=== PATIENT | male | born 1970 | race African-American/Black ===

== ENCOUNTER 2021-09-09 04:35 | Inpatient (IN) | payer MEDICAID ==
[~2021-09-09] VITALS: Ht 160 cm; Wt 68.0 kg
[2021-09-09 05:41] LABS: COVID AG,FIA SOURCE NASAL SWAB
[2021-09-09 05:42] LABS: BASOPHILS % (AUTO) 0.6 % (0.0-2.0); EOSINOPHILS % (AUTO) 1.3 % (1.0-6.0); HEMATOCRIT 41.5 % (41-53); HEMOGLOBIN 13.6 g/dL (13.5-17.5); LYMPHOCYTES # (AUTO) 1.9 K/uL (1.0-4.8); LYMPHOCYTES % (AUTO) 18.8 % (22.0-44.0); MEAN CORPUSCULAR HEMOGLOBIN 31.3 pg (26.0-34.0); MEAN CORPUSCULAR HGB CONC 32.9 G/dL (31.0-37.0); MEAN CORPUSCULAR VOLUME 95 fL (80-100); MONOCYTES # (AUTO) 0.7 K/uL (0.1-1.0); MONOCYTES % (AUTO) 7.5 % (2.0-9.0); NEUTROPHILS # (AUTO) 7.1 K/uL (1.8-7.7); NEUTROPHILS % (AUTO) 71.8 % (40.0-70.0); PLATELET COUNT (AUTO) 315 K/uL (150-450); RED BLOOD CELL COUNT(AUTO) 4.36 MIL/uL (4.50-5.90); RED CELL DISTRIBUTION WIDTH 15.1 % (11.5-14.5)
[2021-09-09 05:53] LABS: ANION GAP 17 mmol/L (8-16); CARBON DIOXIDE 26 mmol/L (22-29); CHLORIDE 102 mmol/L (98-107); GLOMERULAR FILTR. RATE CALC > 60 mL/min (>60); GLUCOSE,RANDOM 115 mg/dL (70-110); POTASSIUM 5.2 mmol/L (3.5-5.1); SODIUM SERUM 145 mmol/L (136-145); UREA NITROGEN, BLOOD 17 mg/dL (7-18)
[2021-09-09 05:58] LABS: ALANINE AMINOTRANSFERASE 37 U/L (12-78); ALBUMIN 3.2 g/dL (3.4-5.0); ALKALINE PHOSPHATASE 149 U/L (46-116); ASPARTATE AMINOTRANSFERASE 20 U/L (15-37); BILIRUBIN,TOTAL 0.5 mg/dL (0.1-1.0); TOTAL PROTEIN, SERUM 6.8 g/dL (6.4-8.2)
[2021-09-09 06:09] LABS: B-TYPE NATRIURETIC PEPTIDE 989 pg/mL (0-100)
[2021-09-09] MEDS ORDERED: ALBUTEROL SULFATE 2.5 MG/0.5 ML NEB SOLUTION NEB ONE (06:15)
[2021-09-09] MEDS ORDERED: IPRATROPIUM BROMIDE 0.5 MG/2.5 ML NEB SOLUTION NEB ONE (06:15)
[2021-09-09] MEDS ORDERED: MethylPREDNISolone SOD SUCC 125 MG/2 ML VIAL IVP ONE (06:15)
[2021-09-09 06:40] LABS: CREATINE KINASE, TOTAL ONLY 69 U/L (39-308)
[2021-09-09] MEDS ORDERED: FUROSEMIDE 40 MG/4 ML VIAL IVP ONE (07:30)
[2021-09-09] MEDS ORDERED: FUROSEMIDE 20 MG/2 ML VIAL IVP ONE (07:30)
[2021-09-09] MEDS ORDERED: AZITHROMYCIN 500 MG/NS 250 ML IV ONE (08:15)
[2021-09-09] MEDS ORDERED: CefTRIAXone 1 GM/DEXTROSE 50 ML IV ONE (08:15)
[2021-09-09 09:40] LABS: APPEARANCE,URINE CLEAR (CLEAR); BILIRUBIN,URINE NEGATIVE (NEGATIVE); GLUCOSE, URINE (UA) NEGATIVE (NEGATIVE); KETONES,URINE NEGATIVE (NEGATIVE); LEUKOCYTE ESTERASE ,URINE NEGATIVE (NEGATIVE); NITRATE,URINE NEGATIVE (NEGATIVE); OCCULT BLOOD,URINE NEGATIVE (NEGATIVE); SPECIFIC GRAVITIY, URINE 1.006 (1.003-1.030); UROBILINOGEN,URINE <=1.0 mg/dL (<=1.0)
[2021-09-09 09:41] LABS: PROTEIN,URINE NEGATIVE (NEGATIVE)
[2021-09-09] MEDS ORDERED: AmLODIPine BESYLATE 5 MG TABLET PO ONE ×2 (10:00→12:45)
[2021-09-09] MEDS ORDERED: HYDROmorphone 2 MG/ML VIAL IVP ONE (10:15)
[2021-09-09 10:19] LABS: BASOPHILS % (AUTO) 0.2 % (0.0-2.0); EOSINOPHILS % (AUTO) 0.1 % (1.0-6.0); HEMATOCRIT 42.4 % (41-53); LYMPHOCYTES # (AUTO) 0.5 K/uL (1.0-4.8); LYMPHOCYTES % (AUTO) 6.2 % (22.0-44.0); MEAN CORPUSCULAR HEMOGLOBIN 31.4 pg (26.0-34.0); MEAN CORPUSCULAR VOLUME 95 fL (80-100); MONOCYTES # (AUTO) 0.2 K/uL (0.1-1.0); MONOCYTES % (AUTO) 2.1 % (2.0-9.0); NEUTROPHILS # (AUTO) 7.7 K/uL (1.8-7.7); NEUTROPHILS % (AUTO) 91.4 % (40.0-70.0); PLATELET COUNT (AUTO) 317 K/uL (150-450); RED BLOOD CELL COUNT(AUTO) 4.46 MIL/uL (4.50-5.90); RED CELL DISTRIBUTION WIDTH 14.7 % (11.5-14.5)
[2021-09-09] MEDS ORDERED: ZOLPIDEM TARTRATE 5 MG TABLET PO PRN (10:30)
[2021-09-09] MEDS ORDERED: ALBUTEROL SULFATE 2.5 MG/0.5 ML NEB SOLUTION NEB PRN (10:30)
[2021-09-09] MEDS ORDERED: ONDANSETRON HCL 4 MG/2 ML VIAL IVP PRN (10:30)
[2021-09-09] MEDS ORDERED: BISACODYL 10 MG RECTAL RECTAL SUPPOSITORY PR PRN (10:30)
[2021-09-09] MEDS ORDERED: MAGNESIUM HYDROXIDE SUSPENSION 30 ML UDCUP PO PRN (10:30)
[2021-09-09] MEDS ORDERED: IPRATROPIUM BROMIDE 0.5 MG/2.5 ML NEB SOLUTION NEB PRN (10:30)
[2021-09-09] MEDS ORDERED: HYDROCODONE/ACETAMINOPHEN 5-325 MG TABLET PO PRN (10:30)
[2021-09-09] MEDS ORDERED: MORPHINE SULFATE 2 MG/ML SYRINGE IVP PRN (10:30)
[2021-09-09] MEDS ORDERED: ACETAMINOPHEN 325 MG TABLET PO PRN (10:30)
[2021-09-09 10:39] LABS: ANION GAP 15 mmol/L (8-16); CALCIUM, TOTAL 8.7 mg/dL (8.8-10.5); CARBON DIOXIDE 19 mmol/L (22-29); CHLORIDE 102 mmol/L (98-107); CREATININE 1.29 mg/dL (0.60-1.30); GLUCOSE,RANDOM 177 mg/dL (70-110); POTASSIUM 4.5 mmol/L (3.5-5.1); SODIUM SERUM 136 mmol/L (136-145); UREA NITROGEN, BLOOD 18 mg/dL (7-18)
[2021-09-09] MEDS: FUROSEMIDE 20 MG/2 ML VIAL IVP SCH (10:40)
[2021-09-09 10:41] LABS: GLOMERULAR FILTR. RATE CALC > 60 mL/min (>60)
[2021-09-09] MEDS: LEVOFLOXACIN 750 MG/D5% WATER 150 ML IV SCH (10:41)
[2021-09-09 10:46] LABS: ALANINE AMINOTRANSFERASE 33 U/L (12-78); ALBUMIN 3.1 g/dL (3.4-5.0); ALKALINE PHOSPHATASE 144 U/L (46-116); ASPARTATE AMINOTRANSFERASE 19 U/L (15-37); BILIRUBIN,TOTAL 0.7 mg/dL (0.1-1.0); LIPASE 118 U/L (73-393); TOTAL PROTEIN, SERUM 6.6 g/dL (6.4-8.2)
[2021-09-09 10:49] LABS: AMPHET/METH SCREEN,URINE POSITIVE (NEGATIVE); BARBITURATE SCREEN, URINE NEGATIVE (NEGATIVE); BENZODIAZEPINES SCREEN,URINE NEGATIVE (NEGATIVE); CANNABINOID SCREEN,URINE NEGATIVE (NEGATIVE); COCAINE SCREEN,URINE NEGATIVE (NEGATIVE); METHADONE SCREEN, URINE NEGATIVE (NEGATIVE); OPIATE SCREEN,URINE NEGATIVE (NEGATIVE)
[2021-09-09 10:51] LABS: PHENCYCLIDINE SCREEN,URINE NEGATIVE (NEGATIVE)
[2021-09-09 11:12] LABS: PHOSPHORUS 3.5 mg/dL (2.5-4.9)
[2021-09-09 13:24] VITALS: BP 130/95
[2021-09-09 16:07] VITALS: BP 126/96
[2021-09-09] MEDS: HEPARIN SODIUM,PORCINE 5,000 UNITS/ML VIAL SQ SCH ×2 (16:41→23:37)
[2021-09-09 20:00] VITALS: BP 127/98
[2021-09-09] MEDS: DOCUSATE SODIUM 100 MG CAPSULE PO SCH (20:46)
[2021-09-10 04:54] VITALS: BP 137/100
[2021-09-10] MEDS ORDERED: PNEUMOCOCCAL VACCINE POLYVALENT 0.5 ML VIAL [PPSV23] IM. ONE (06:00)
[2021-09-10 06:10] LABS: BASOPHILS % (AUTO) 0.1 % (0.0-2.0); EOSINOPHILS % (AUTO) 0 % (1.0-6.0); HEMATOCRIT 39.8 % (41-53); HEMOGLOBIN 12.8 g/dL (13.5-17.5); LYMPHOCYTES # (AUTO) 0.7 K/uL (1.0-4.8); LYMPHOCYTES % (AUTO) 5.7 % (22.0-44.0); MEAN CORPUSCULAR HEMOGLOBIN 30.9 pg (26.0-34.0); MEAN CORPUSCULAR HGB CONC 32.2 G/dL (31.0-37.0); MEAN CORPUSCULAR VOLUME 96 fL (80-100); MONOCYTES # (AUTO) 0.8 K/uL (0.1-1.0); NEUTROPHILS # (AUTO) 10.4 K/uL (1.8-7.7); PLATELET COUNT (AUTO) 316 K/uL (150-450); RED BLOOD CELL COUNT(AUTO) 4.15 MIL/uL (4.50-5.90)
[2021-09-10 06:13] LABS: ANION GAP 11 mmol/L (8-16); CALCIUM, TOTAL 8.8 mg/dL (8.8-10.5); CARBON DIOXIDE 24 mmol/L (22-29); CHLORIDE 100 mmol/L (98-107); CREATININE 1.27 mg/dL (0.60-1.30); GLUCOSE,RANDOM 143 mg/dL (70-110); POTASSIUM 4.6 mmol/L (3.5-5.1); SODIUM SERUM 135 mmol/L (136-145); UREA NITROGEN, BLOOD 29 mg/dL (7-18)
[2021-09-10 06:14] LABS: NEUTROPHILS % (AUTO) 87.2 % (40.0-70.0)
[2021-09-10 06:17] LABS: GLOMERULAR FILTR. RATE CALC > 60 mL/min (>60)
[2021-09-10 07:30] VITALS: BP 125/96
[2021-09-10] MEDS: DOCUSATE SODIUM 100 MG CAPSULE PO SCH ×2 (08:36→20:14)
[2021-09-10] MEDS: HEPARIN SODIUM,PORCINE 5,000 UNITS/ML VIAL SQ SCH ×3 (08:36→23:29)
[2021-09-10] MEDS: PANTOPRAZOLE SODIUM 40 MG DR TABLET PO SCH (08:36)
[2021-09-10] MEDS: FUROSEMIDE 20 MG/2 ML VIAL IVP SCH (08:36)
[2021-09-10] MEDS ORDERED: SODIUM CHLORIDE 0.9% 500 ML IV ONE (11:11)
[2021-09-10] MEDS: LEVOFLOXACIN 750 MG/D5% WATER 150 ML IV SCH (11:25)
[2021-09-10 16:00] VITALS: BP 129/89
[2021-09-10 21:01] VITALS: BP 135/95
[2021-09-11 06:02] LABS: BASOPHILS % (AUTO) 0.3 % (0.0-2.0); EOSINOPHILS % (AUTO) 0.4 % (1.0-6.0); HEMATOCRIT 39.5 % (41-53); HEMOGLOBIN 12.6 g/dL (13.5-17.5); LYMPHOCYTES # (AUTO) 1.9 K/uL (1.0-4.8); LYMPHOCYTES % (AUTO) 15.6 % (22.0-44.0); MEAN CORPUSCULAR HEMOGLOBIN 30.6 pg (26.0-34.0); MEAN CORPUSCULAR HGB CONC 31.8 G/dL (31.0-37.0); MEAN CORPUSCULAR VOLUME 96 fL (80-100); MONOCYTES # (AUTO) 0.8 K/uL (0.1-1.0); NEUTROPHILS # (AUTO) 9.2 K/uL (1.8-7.7); NEUTROPHILS % (AUTO) 76.7 % (40.0-70.0); PLATELET COUNT (AUTO) 317 K/uL (150-450)
[2021-09-11 06:07] VITALS: BP 131/100
[2021-09-11 06:28] LABS: ANION GAP 11 mmol/L (8-16); CALCIUM, TOTAL 8.7 mg/dL (8.8-10.5); CARBON DIOXIDE 27 mmol/L (22-29); CHLORIDE 104 mmol/L (98-107); CREATININE 1.37 mg/dL (0.60-1.30); GLUCOSE,RANDOM 104 mg/dL (70-110); POTASSIUM 4.2 mmol/L (3.5-5.1); SODIUM SERUM 142 mmol/L (136-145); UREA NITROGEN, BLOOD 35 mg/dL (7-18)
[2021-09-11 06:30] LABS: GLOMERULAR FILTR. RATE CALC > 60 mL/min (>60)
[2021-09-11 07:51] VITALS: BP 124/85
[2021-09-11] MEDS: HEPARIN SODIUM,PORCINE 5,000 UNITS/ML VIAL SQ SCH ×3 (08:30→23:41)
[2021-09-11] MEDS: FUROSEMIDE 20 MG/2 ML VIAL IVP SCH (08:30)
[2021-09-11] MEDS: DOCUSATE SODIUM 100 MG CAPSULE PO SCH ×2 (08:30→21:00)
[2021-09-11] MEDS: PANTOPRAZOLE SODIUM 40 MG DR TABLET PO SCH (08:30)
[2021-09-11] MEDS: LEVOFLOXACIN 750 MG/D5% WATER 150 ML IV SCH (11:07)
[2021-09-11 15:57] VITALS: BP 137/82
[2021-09-11 20:00] VITALS: BP 146/102
[2021-09-11 23:41] VITALS: BP 140/95
[2021-09-12 04:59] VITALS: BP 131/93
[2021-09-12 06:24] LABS: BASOPHILS % (AUTO) 0.4 % (0.0-2.0); EOSINOPHILS % (AUTO) 1.5 % (1.0-6.0); HEMATOCRIT 42.7 % (41-53); HEMOGLOBIN 13.8 g/dL (13.5-17.5); LYMPHOCYTES # (AUTO) 1.7 K/uL (1.0-4.8); LYMPHOCYTES % (AUTO) 17.1 % (22.0-44.0); MEAN CORPUSCULAR HEMOGLOBIN 31.1 pg (26.0-34.0); MEAN CORPUSCULAR HGB CONC 32.3 G/dL (31.0-37.0); MEAN CORPUSCULAR VOLUME 96 fL (80-100); MONOCYTES # (AUTO) 0.9 K/uL (0.1-1.0); MONOCYTES % (AUTO) 9.5 % (2.0-9.0); NEUTROPHILS % (AUTO) 71.5 % (40.0-70.0); PLATELET COUNT (AUTO) 339 K/uL (150-450); RED BLOOD CELL COUNT(AUTO) 4.43 MIL/uL (4.50-5.90); RED CELL DISTRIBUTION WIDTH 14.5 % (11.5-14.5)
[2021-09-12 06:39] LABS: ANION GAP 6 mmol/L (8-16); CALCIUM, TOTAL 9.2 mg/dL (8.8-10.5); CARBON DIOXIDE 29 mmol/L (22-29); CHLORIDE 102 mmol/L (98-107); CREATININE 1.47 mg/dL (0.60-1.30); GLUCOSE,RANDOM 91 mg/dL (70-110); POTASSIUM 4.1 mmol/L (3.5-5.1); SODIUM SERUM 137 mmol/L (136-145); UREA NITROGEN, BLOOD 31 mg/dL (7-18)
[2021-09-12 07:19] LABS: GLOMERULAR FILTR. RATE CALC > 60 mL/min (>60)
[2021-09-12] MEDS: PANTOPRAZOLE SODIUM 40 MG DR TABLET PO SCH (08:07)
[2021-09-12] MEDS: FUROSEMIDE 20 MG/2 ML VIAL IVP SCH (08:07)
[2021-09-12] MEDS: HEPARIN SODIUM,PORCINE 5,000 UNITS/ML VIAL SQ SCH (08:07)
[2021-09-12] MEDS: DOCUSATE SODIUM 100 MG CAPSULE PO SCH (08:07)
[2021-09-12 08:34] VITALS: BP_SYST 116; BP_SYST 131; BP_DIAS 75; BP_DIAS 93
[2021-09-12] MEDS: LEVOFLOXACIN 750 MG/D5% WATER 150 ML IV SCH (09:53)
[2021-09-12] MEDS ORDERED: LEVO250T75 PO (11:21)
[2021-09-12] MEDS ORDERED: FURO20 PO (15:25)
== END 2021-09-12 14:46 | disposition home or self-care (01) | DRG 194 ==
LOC: EMS 04:39 → 6N 12:16
PROVIDERS: ADMIT Internal Medicine; ATTEND Internal Medicine
DX: I50.23 Acute on chronic systolic (congestive) heart failure (principal); J18.9 Pneumonia, unspecified organism; I49.3 Ventricular premature depolarization; Z20.822 Contact with and (suspected) exposure to COVID-19; R73.9 Hyperglycemia, unspecified; Z79.899 Other long term (current) drug therapy; Z87.891 Personal history of nicotine dependence
CPT/HCPCS: 71045; 74176; 80048; 80053; 81003; 82550; 83605; 83690; 83735; 83880; 84100; 84484; 85025; 85379; 87040; 93005; 94640; 99285; J0456; J1170; J1644; J1940; J1956; J2930; J7040; 36415-L1; 36415-TC; J7613; U0003

== ENCOUNTER 2022-01-03 18:01 | Inpatient (IN) | payer MEDICAID ==
[~2022-01-03] VITALS: Ht 158.8 cm; Wt 62.5 kg
[~2022-01-03 18:01] MED LIST: AMOX1TAB16 PO; FURO20 PO; LOSA-381 PO; METO25 PO; SPIR-37 PO
[2022-01-03] MEDS ORDERED: FURO20TA4 PO (18:28)
[2022-01-03] MEDS ORDERED: ALBUTEROL SULFATE 2.5 MG/0.5 ML NEB SOLUTION NEB ONE (18:30)
[2022-01-03] MEDS ORDERED: IPRATROPIUM BROMIDE 0.5 MG/2.5 ML NEB SOLUTION NEB ONE (18:30)
[2022-01-03] MEDS ORDERED: ASPIRIN 325 MG TABLET PO ONE (18:30)
[2022-01-03] MEDS ORDERED: FUROSEMIDE 40 MG/4 ML VIAL IVP ONE (18:30)
[2022-01-03] MEDS ORDERED: NITROGLYCERIN 2% (1 GM=INCH) PACKET TP ONE (18:30)
[2022-01-03] MEDS ORDERED: MethylPREDNISolone SOD SUCC 125 MG/2 ML VIAL IVP ONE (18:30)
[2022-01-03] MEDS ORDERED: CefTRIAXone 1 GM/DEXTROSE 50 ML IV ONE (19:15)
[2022-01-03 19:26] LABS: BASOPHILS % (AUTO) 0.8 % (0.0-2.0); EOSINOPHILS % (AUTO) 0.9 % (1.0-6.0); HEMATOCRIT 46.7 % (41-53); HEMOGLOBIN 14.9 g/dL (13.5-17.5); LYMPHOCYTES # (AUTO) 2.5 K/uL (1.0-4.8); LYMPHOCYTES % (AUTO) 29.8 % (22.0-44.0); MEAN CORPUSCULAR HEMOGLOBIN 29.7 pg (26.0-34.0); MEAN CORPUSCULAR HGB CONC 31.9 G/dL (31.0-37.0); MEAN CORPUSCULAR VOLUME 93 fL (80-100); MONOCYTES # (AUTO) 0.6 K/uL (0.1-1.0); MONOCYTES % (AUTO) 7.4 % (2.0-9.0); NEUTROPHILS # (AUTO) 5.2 K/uL (1.8-7.7); NEUTROPHILS % (AUTO) 61.1 % (40.0-70.0); PLATELET COUNT (AUTO) 324 K/uL (150-450); RED BLOOD CELL COUNT(AUTO) 5.02 MIL/uL (4.50-5.90); RED CELL DISTRIBUTION WIDTH 16.3 % (11.5-14.5)
[2022-01-03 19:36] LABS: ANION GAP 9 mmol/L (8-16); CALCIUM, TOTAL 9.1 mg/dL (8.8-10.5); CARBON DIOXIDE 23 mmol/L (22-29); CHLORIDE 101 mmol/L (98-107); CREATININE 1.98 mg/dL (0.60-1.30); GLOMERULAR FILTR. RATE CALC 44 mL/min (>60); GLUCOSE,RANDOM 121 mg/dL (70-110); POTASSIUM 4.4 mmol/L (3.5-5.1); SODIUM SERUM 133 mmol/L (136-145); UREA NITROGEN, BLOOD 33 mg/dL (7-18)
[2022-01-03 19:42] LABS: ALANINE AMINOTRANSFERASE 26 U/L (12-78); ALBUMIN 3.5 g/dL (3.4-5.0); ALKALINE PHOSPHATASE 172 U/L (46-116); ASPARTATE AMINOTRANSFERASE 26 U/L (15-37); BILIRUBIN,TOTAL 1.3 mg/dL (0.1-1.0); LIPASE 183 U/L (73-393); TOTAL PROTEIN, SERUM 7.5 g/dL (6.4-8.2)
[2022-01-03 19:47] LABS: LACTIC ACID 2.7 mmol/L (0.4-2.0)
[2022-01-03 19:48] LABS: B-TYPE NATRIURETIC PEPTIDE 1980 pg/mL (0-100)
[2022-01-03 19:50] LABS: COVID AG,FIA SOURCE NASOPHARYNGEAL
[2022-01-03] MEDS: OXYGEN THERAPY IH SCH ×2 (19:58→20:00)
[2022-01-03 20:06] LABS: INFLUENZA TYPE A NEGATIVE FOR TYPE A (NEGATIVE); INFLUENZA TYPE B NEGATIVE FOR TYPE B (NEGATIVE)
[2022-01-03] MEDS ORDERED: 0.9% SODIUM CHLORIDE 10 ML SYRINGE IVP PRN (21:30)
[2022-01-03] MEDS ORDERED: ACETAMINOPHEN 325 MG TABLET PO PRN ×2 (21:30→23:45)
[2022-01-03] MEDS ORDERED: ONDANSETRON HCL 4 MG/2 ML VIAL IVP PRN ×2 (21:30→23:45)
[2022-01-03] MEDS ORDERED: BUMETANIDE 0.25 MG/ML 4 ML VIAL IVP ONE (21:30)
[2022-01-03] MEDS ORDERED: METOPROLOL TARTRATE 25 MG TABLET PO ONE (22:00)
[2022-01-03] MEDS ORDERED: LABETALOL HCL 5 MG/ML 20 ML VIAL IVP ONE (22:00)
[2022-01-03] MEDS ORDERED: MAGNESIUM HYDROXIDE SUSPENSION 30 ML UDCUP PO PRN (23:45)
[2022-01-03] MEDS ORDERED: BISACODYL 10 MG RECTAL RECTAL SUPPOSITORY PR PRN (23:45)
[2022-01-03] MEDS ORDERED: ZOLPIDEM TARTRATE 5 MG TABLET PO PRN (23:45)
[2022-01-03] MEDS ORDERED: IPRATROPIUM BROMIDE 0.5 MG/2.5 ML NEB SOLUTION NEB PRN (23:45)
[2022-01-03] MEDS ORDERED: OxyCODONE HCL/ACETAMINOPHEN 5-325 MG TABLET PO PRN (23:45)
[2022-01-03] MEDS ORDERED: MORPHINE SULFATE 2 MG/ML SYRINGE IVP PRN (23:45)
[2022-01-03] MEDS ORDERED: ALBUTEROL SULFATE 2.5 MG/0.5 ML NEB SOLUTION NEB PRN (23:45)
[2022-01-04] MEDS: HEPARIN SODIUM,PORCINE 5,000 UNITS/ML VIAL SQ SCH ×4 (00:10→23:35)
[2022-01-04] MEDS: MethylPREDNISolone SOD SUCC 125 MG/2 ML VIAL IVP SCH ×5 (00:10→23:35)
[2022-01-04] MEDS: IPRATROPIUM BROMIDE 0.5 MG/2.5 ML NEB SOLUTION NEB SCH ×6 (03:11→23:00)
[2022-01-04] MEDS: ALBUTEROL SULFATE 2.5 MG/0.5 ML NEB SOLUTION NEB SCH ×6 (03:11→23:00)
[2022-01-04] MEDS: PANTOPRAZOLE SODIUM 40 MG DR TABLET PO SCH (08:13)
[2022-01-04] MEDS: DOCUSATE SODIUM 100 MG CAPSULE PO SCH ×2 (08:13→20:05)
[2022-01-04] MEDS: FUROSEMIDE 20 MG/2 ML VIAL IVP SCH ×2 (08:13→20:06)
[2022-01-04] MEDS: LOSARTAN POTASSIUM 25 MG TABLET PO SCH (08:14)
[2022-01-04] MEDS: METOPROLOL TARTRATE 25 MG TABLET PO SCH ×2 (08:14→20:06)
[2022-01-04 16:03] VITALS: BP 122/89
[2022-01-04 16:05] VITALS: BP 122/89
[2022-01-04] MEDS ORDERED: PNEUMOCOCCAL VACCINE POLYVALENT 0.5 ML VIAL [PPSV23] IM. ONE (19:15)
[2022-01-04 19:31] VITALS: BP 121/87
[2022-01-04 23:58] VITALS: BP 102/63
[2022-01-05] MEDS: ALBUTEROL SULFATE 2.5 MG/0.5 ML NEB SOLUTION NEB SCH ×6 (03:00→22:36)
[2022-01-05] MEDS: IPRATROPIUM BROMIDE 0.5 MG/2.5 ML NEB SOLUTION NEB SCH ×6 (03:00→22:36)
[2022-01-05 04:16] VITALS: BP 109/78
[2022-01-05] MEDS: MethylPREDNISolone SOD SUCC 125 MG/2 ML VIAL IVP SCH ×3 (06:13→18:22)
[2022-01-05 07:18] VITALS: BP 118/78
[2022-01-05] MEDS: FUROSEMIDE 20 MG/2 ML VIAL IVP SCH ×2 (07:43→20:36)
[2022-01-05] MEDS: METOPROLOL TARTRATE 25 MG TABLET PO SCH ×2 (07:43→20:36)
[2022-01-05] MEDS: DOCUSATE SODIUM 100 MG CAPSULE PO SCH ×2 (07:43→20:36)
[2022-01-05] MEDS: HEPARIN SODIUM,PORCINE 5,000 UNITS/ML VIAL SQ SCH ×3 (07:44→23:50)
[2022-01-05] MEDS: LOSARTAN POTASSIUM 25 MG TABLET PO SCH (07:44)
[2022-01-05] MEDS: PANTOPRAZOLE SODIUM 40 MG DR TABLET PO SCH (07:45)
[2022-01-05 11:09] VITALS: BP 103/67
[2022-01-05 15:24] VITALS: BP 114/67
[2022-01-05 17:22] LABS: APPEARANCE,URINE CLEAR (CLEAR); BILIRUBIN,URINE NEGATIVE (NEGATIVE); GLUCOSE, URINE (UA) NEGATIVE (NEGATIVE); KETONES,URINE NEGATIVE (NEGATIVE); LEUKOCYTE ESTERASE ,URINE NEGATIVE (NEGATIVE); NITRATE,URINE NEGATIVE (NEGATIVE); OCCULT BLOOD,URINE NEGATIVE (NEGATIVE); PROTEIN,URINE NEGATIVE (NEGATIVE); SPECIFIC GRAVITIY, URINE 1.012 (1.003-1.030); UROBILINOGEN,URINE <=1.0 mg/dL (<=1.0)
[2022-01-05 17:35] LABS: AMPHET/METH SCREEN,URINE NEGATIVE (NEGATIVE); BARBITURATE SCREEN, URINE NEGATIVE (NEGATIVE); BENZODIAZEPINES SCREEN,URINE NEGATIVE (NEGATIVE); CANNABINOID SCREEN,URINE POSITIVE (NEGATIVE); COCAINE SCREEN,URINE NEGATIVE (NEGATIVE); METHADONE SCREEN, URINE NEGATIVE (NEGATIVE); OPIATE SCREEN,URINE NEGATIVE (NEGATIVE)
[2022-01-05 17:39] LABS: PHENCYCLIDINE SCREEN,URINE NEGATIVE (NEGATIVE)
[2022-01-05 17:54] LABS: BACTERIA,URINE None Seen /HPF (None Seen); FINE GRANULAR CASTS,URINE 0-2 /LPF (None Seen); RBC,URINE 0-2 /HPF (0-2); SQUAMOUS EPITHELIAL CELL,UR Few /LPF (None Seen); WBC,URINE 0-2 /HPF (0-5)
[2022-01-05 19:55] VITALS: BP 115/74
[2022-01-05] MEDS ORDERED: PredniSONE 20 MG TABLET PO ONE (22:45)
[2022-01-06 00:40] VITALS: BP 111/63
[2022-01-06] MEDS: ALBUTEROL SULFATE 2.5 MG/0.5 ML NEB SOLUTION NEB SCH ×4 (03:00→15:05)
[2022-01-06] MEDS: IPRATROPIUM BROMIDE 0.5 MG/2.5 ML NEB SOLUTION NEB SCH ×4 (03:00→15:05)
[2022-01-06 07:29] VITALS: BP 124/86
[2022-01-06] MEDS: METOPROLOL TARTRATE 25 MG TABLET PO SCH (09:00)
[2022-01-06] MEDS ORDERED: PredniSONE 20 MG TABLET PO SCH (09:00)
[2022-01-06] MEDS: PANTOPRAZOLE SODIUM 40 MG DR TABLET PO SCH (09:00)
[2022-01-06] MEDS: DOCUSATE SODIUM 100 MG CAPSULE PO SCH (09:00)
[2022-01-06] MEDS: LOSARTAN POTASSIUM 25 MG TABLET PO SCH (09:01)
[2022-01-06] MEDS: HEPARIN SODIUM,PORCINE 5,000 UNITS/ML VIAL SQ SCH ×2 (09:01→16:49)
[2022-01-06] MEDS: FUROSEMIDE 20 MG/2 ML VIAL IVP SCH (09:04)
[2022-01-06 11:02] VITALS: BP 116/69
[2022-01-06 13:59] LABS: BASOPHILS % (AUTO) 0.2 % (0.0-2.0); EOSINOPHILS % (AUTO) 0.1 % (1.0-6.0); HEMATOCRIT 39.5 % (41-53); HEMOGLOBIN 12.3 g/dL (13.5-17.5); LYMPHOCYTES # (AUTO) 0.2 K/uL (1.0-4.8); LYMPHOCYTES % (AUTO) 1.6 % (22.0-44.0); MEAN CORPUSCULAR HEMOGLOBIN 28.9 pg (26.0-34.0); MEAN CORPUSCULAR HGB CONC 31.3 G/dL (31.0-37.0); MEAN CORPUSCULAR VOLUME 92 fL (80-100); MONOCYTES % (AUTO) 6.5 % (2.0-9.0); NEUTROPHILS # (AUTO) 13.7 K/uL (1.8-7.7); PLATELET COUNT (AUTO) 324 K/uL (150-450); RED BLOOD CELL COUNT(AUTO) 4.28 MIL/uL (4.50-5.90); RED CELL DISTRIBUTION WIDTH 16.3 % (11.5-14.5)
[2022-01-06 14:00] LABS: NEUTROPHILS % (AUTO) 91.6 % (40.0-70.0)
[2022-01-06 14:11] LABS: ALBUMIN 2.6 g/dL (3.4-5.0); BILIRUBIN,TOTAL 0.6 mg/dL (0.1-1.0); CALCIUM, TOTAL 7.9 mg/dL (8.8-10.5); CREATININE 1.55 mg/dL (0.60-1.30); TOTAL PROTEIN, SERUM 5.9 g/dL (6.4-8.2)
[2022-01-06 14:44] VITALS: BP 138/73
[2022-01-06] MEDS ORDERED: IPRA4AER IH (15:10)
[2022-01-06] MEDS ORDERED: METO25 PO (15:10)
[2022-01-06] MEDS ORDERED: FURO20TA4 PO (15:10)
[2022-01-06] MEDS ORDERED: LOSA-381 PO (15:10)
[2022-01-06] MEDS ORDERED: PRED-554 PO (15:10)
[2022-01-06] MEDS ORDERED: SPIR-37 PO (15:15)
[2022-01-06] MEDS ORDERED: POTASSIUM CHLORIDE 20 MEQ ER TABLET PO ONE (15:15)
[2022-01-06] MEDS ORDERED: SPIRONOLACTONE 25 MG TABLET PO ONE (15:15)
[2022-01-07] MEDS ORDERED: SPIRONOLACTONE 25 MG TABLET PO SCH (09:00)
== END 2022-01-06 17:35 | disposition home or self-care (01) | DRG 140 ==
LOC: EMS 18:04 → 5S 01-04 14:48
PROVIDERS: ADMIT Hospitalist; ATTEND Hospitalist
DX: J44.1 Chronic obstructive pulmonary disease with (acute) exacerbation (principal); I50.23 Acute on chronic systolic (congestive) heart failure; N17.9 Acute kidney failure, unspecified; I42.9 Cardiomyopathy, unspecified; J91.8 Pleural effusion in other conditions classified elsewhere; I11.0 Hypertensive heart disease with heart failure; F15.10 Other stimulant abuse, uncomplicated; F19.11 Other psychoactive substance abuse, in remission; F17.210 Nicotine dependence, cigarettes, uncomplicated; Z20.822 Contact with and (suspected) exposure to COVID-19; Z79.899 Other long term (current) drug therapy
CPT/HCPCS: 71045; 80053; 80307; 81001; 83605; 83690; 83880; 84484; 85025; 87040; 87804; 93005; 93306; 94640; 99291; G0480; J0696; J1644; J1940; J2930; J3490; 36415-L1; 36415-TC; J7613

== ENCOUNTER 2024-08-12 07:45 | Inpatient (IN) | payer MEDICAID ==
[2024-08-12] VITALS (7 sets, daily range): PULSE 82–110; RESP 14–24; O2SAT 77–100
[~2024-08-12] VITALS: Ht 160 cm; Wt 60.6 kg
[~2024-08-12 07:45] MED LIST changes: -AMOX1TAB16 PO; +CHOL50002 PO; -FURO20 PO; +FURO20TA5 PO; +IPRA4AER IH; -LOSA-381 PO; +LOSA-417 PO; +METO-391 PO; -METO25 PO; +PRED-554 PO
[2024-08-12 08:47] LABS: BASOPHILS % (AUTO) 0.6 % (0.0-2.0); HEMATOCRIT 42.2 % (41-53); HEMOGLOBIN 13.7 g/dL (13.5-17.5); LYMPHOCYTES # (AUTO) 1.7 K/uL (1.0-4.8); LYMPHOCYTES % (AUTO) 18.3 % (22.0-44.0); MEAN CORPUSCULAR HEMOGLOBIN 30.9 pg (26.0-34.0); MEAN CORPUSCULAR HGB CONC 32.4 G/dL (31.0-37.0); MEAN CORPUSCULAR VOLUME 95 fL (80-100); MONOCYTES % (AUTO) 10.4 % (2.0-9.0); NEUTROPHILS # (AUTO) 6.6 K/uL (1.8-7.7); NEUTROPHILS % (AUTO) 69.7 % (40.0-70.0); PLATELET COUNT (AUTO) 311 K/uL (150-450); RED BLOOD CELL COUNT(AUTO) 4.43 MIL/uL (4.50-5.90); RED CELL DISTRIBUTION WIDTH 14.1 % (11.5-14.5); WHITE BLOOD COUNT (AUTO) 9.5 K/uL (4.5-11.0)
[2024-08-12 08:53] LABS: ANION GAP 8 mmol/L (8-16); CALCIUM, TOTAL 8.8 mg/dL (8.8-10.5); CARBON DIOXIDE 24 mmol/L (22-29); CHLORIDE 107 mmol/L (98-107); CREATININE 1.53 mg/dL (0.60-1.30); GLOMERULAR FILTR. RATE CALC 58 mL/min (>60); GLUCOSE,RANDOM 106 mg/dL (70-110); POTASSIUM 4.5 mmol/L (3.5-5.1); SODIUM SERUM 139 mmol/L (136-145); UREA NITROGEN, BLOOD 25 mg/dL (7-18)
[2024-08-12 08:59] LABS: CREATINE KINASE, TOTAL ONLY 184 U/L (39-308); PROTHROMBIN TIME 11.5 SEC (9.4-11.6)
[2024-08-12 09:01] LABS: TROPONIN I-HIGH SENSITIVITY 70 ng/L (<76)
[2024-08-12] MEDS: NITROGLYCERIN 2% (1 GM=INCH) OINTMENT PACKET TP ONE ×2 (09:10→13:15)
[2024-08-12 09:13] LABS: RBC MORPHOLOGY COMMENT NORMAL RBC MORPH
[2024-08-12 09:15] LABS: B-TYPE NATRIURETIC PEPTIDE 896 pg/mL (0-100)
[2024-08-12] MEDS: FUROSEMIDE 40 MG/4 ML VIAL IVP ONE (09:15)
[2024-08-12] MEDS: CefTRIAXone 1 GM/DEXTROSE 50 ML IV ONE (10:10)
[2024-08-12] MEDS: AZITHROMYCIN 500 MG/NS 250 ML IV ONE (10:41)
[2024-08-12] MEDS: LORazepam 2 MG/ML VIAL IVP ONE ×2 (10:42→14:31)
[2024-08-12 10:56] LABS: SITE, BLOOD GAS LFT BRACHIAL
[2024-08-12 10:57] LABS: ABG BASE EXCESS -7.5 mmol/L (-2.0-3.0); ABG PCO2 24 mmHg (32.0-48.0); ALLEN TEST, BLOOD GAS POS; PO2, ARTERIAL BG 283.4 mmHg (83.0-108.0); TEMPERATURE, FAHRENHEIT, BG 96.6 FAHREN (96.0-98.6)
[2024-08-12 10:58] LABS: ABG CARBOXYHEMOGLOBIN 1.3 % (0.5-1.5); ABG METHEMOGLOBIN 0.7 % (0.0-1.5); ABG OXYGEN CONTENT 20.3 mL/dL (15.0-23.0); ABG OXYHEMOGLOBIN 97.7 % (94.0-98.0); ABG TOTAL HEMOGLOBIN 14.3 G/dL (13.5-17.5)
[2024-08-12 10:59] LABS: ABG OXYGEN SATURATION 99.7 % (94.0-98.0); O2 DEVICE,BLOOD GAS BIPAP (ROOM AIR); SPONTANEOUS VT, BG 737 ml
[2024-08-12 11:08] LABS: SOURCE, BLOOD GAS ARTERIAL
[2024-08-12 11:16] LABS: PH,URINE DRUG SCREEN 5.5 (5.0-8.0)
[2024-08-12 11:17] LABS: APPEARANCE,URINE CLEAR (CLEAR); BILIRUBIN,URINE NEGATIVE (NEGATIVE); COLOR,URINE LIGHT YELLOW (YELLOW); GLUCOSE, URINE (UA) NEGATIVE (NEGATIVE); KETONES,URINE NEGATIVE (NEGATIVE); LEUKOCYTE ESTERASE ,URINE NEGATIVE (NEGATIVE); NITRATE,URINE NEGATIVE (NEGATIVE); OCCULT BLOOD,URINE NEGATIVE (NEGATIVE); PH,URINE 5.5 (5.0-8.0); PROTEIN,URINE 30-70 mg/dL (NEGATIVE); SPECIFIC GRAVITIY, URINE 1.013 (1.003-1.030); UROBILINOGEN,URINE <=1.0 mg/dL (<=1.0)
[2024-08-12 11:33] LABS: ALCOHOL, URINE DRUG SCREEN NEGATIVE (NEGATIVE); AMPHET/METH SCREEN,URINE POSITIVE (NEGATIVE); BARBITURATE SCREEN, URINE NEGATIVE (NEGATIVE); BENZODIAZEPINES SCREEN,URINE NEGATIVE (NEGATIVE); CANNABINOID SCREEN,URINE NEGATIVE (NEGATIVE); COCAINE SCREEN,URINE NEGATIVE (NEGATIVE); METHADONE SCREEN, URINE NEGATIVE (NEGATIVE); OPIATE SCREEN,URINE NEGATIVE (NEGATIVE); PHENCYCLIDINE SCREEN,URINE NEGATIVE (NEGATIVE)
[2024-08-12] MEDS: MORPHINE SULFATE 2 MG/ML SYRINGE IVP ONE (11:35)
[2024-08-12] MEDS ORDERED: IOHEXOL 350 MG/ML 100 ML VIAL ONE (11:50)
[2024-08-12] MEDS ORDERED: PHENYLEPHRINE HCL IN 0.9% NACL 400 MCG/10 ML SYRINGE IVP ONE (12:23)
[2024-08-12] MEDS ORDERED: PROPOFOL 1000 MG/ISO-OSM 0 ML ONE (12:29)
[2024-08-12] MEDS ORDERED: NOREPINEPHRINE 8 MG/0.9 % NACL 250 ML IV ONE (12:29)
[2024-08-12] MEDS: NOREPINEPHRINE 8 MG/0.9 % NACL 250 ML IV PRN (12:30)
[2024-08-12 13:10] LABS: TROPONIN I-HIGH SENSITIVITY 78 ng/L (<76)
[2024-08-12] MEDS ORDERED: BUMETANIDE 0.25 MG/ML 10 ML VIAL ONE (13:12)
[2024-08-12] MEDS: BUMETANIDE 0.25 MG/ML 4 ML VIAL IVP ONE (13:14)
[2024-08-12] MEDS: KETAMINE HCL 500 MG in DEXTROSE 5%-WATER 490 ML IV PRN (13:16)
[2024-08-12] MEDS: SODIUM BICARBONATE [ADULT] 8.4% 50 MEQ/50 ML SYRINGE IVP ONE (14:26)
[2024-08-12] MEDS: SODIUM CHLORIDE 0.9% 250 ML IV ONE (14:27)
[2024-08-12] MEDS ORDERED: BISACODYL 10 MG RECTAL RECTAL SUPPOSITORY PR PRN (14:45)
[2024-08-12] MEDS ORDERED: HYDROCODONE/ACETAMINOPHEN 5-325 MG TABLET PO PRN (14:45)
[2024-08-12] MEDS ORDERED: MORPHINE SULFATE 2 MG/ML SYRINGE IVP PRN (14:45)
[2024-08-12] MEDS ORDERED: MAGNESIUM HYDROXIDE SUSPENSION 30 ML UDCUP PO PRN (14:45)
[2024-08-12] MEDS ORDERED: ZOLPIDEM TARTRATE 5 MG TABLET PO PRN (14:45)
[2024-08-12] MEDS ORDERED: ONDANSETRON HCL 4 MG/2 ML VIAL IVP PRN (14:45)
[2024-08-12] MEDS ORDERED: HydrALAZINE HCL 20 MG/ML VIAL IVP PRN (14:45)
[2024-08-12] MEDS: *CLINICAL-LEVOFLOXACIN IVPB DOSING CLINICAL ONE (15:01)
[2024-08-12] MEDS: HEPARIN SODIUM,PORCINE 5,000 UNITS/ML VIAL SQ SCH (15:21)
[2024-08-12] MEDS ORDERED: PROPOFOL 1000 MG/ISO-OSM 100 ML ONE (15:25)
[2024-08-12 15:26] LABS: ALLEN TEST, BLOOD GAS Positive; SITE, BLOOD GAS RT RADIAL; SOURCE, BLOOD GAS ARTERIAL; TEMPERATURE, FAHRENHEIT, BG 97.2 FAHREN (96.0-98.6)
[2024-08-12 15:27] LABS: ABG PH 7.063 (7.350-7.450)
[2024-08-12 15:28] LABS: ABG BASE EXCESS -14.8 mmol/L (-2.0-3.0); PO2, ARTERIAL BG 174.7 mmHg (83.0-108.0)
[2024-08-12 15:30] LABS: PEEP,BG 5 cm H2O; SPONTANEOUS VT, BG 467 ml; VT, ABG 450 ml
[2024-08-12 15:31] LABS: O2 DEVICE,BLOOD GAS VENTILATOR (ROOM AIR)
[2024-08-12 15:32] LABS: ABG PCO2 63 mmHg (32.0-48.0)
[2024-08-12] MEDS: PROPOFOL 1000 MG/ISO-OSM 100 ML IV PRN (15:38)
[2024-08-12] MEDS: LEVOFLOXACIN 750 MG/D5% WATER 150 ML IV SCH (16:46)
[2024-08-12] MEDS ORDERED: MIDAZOLAM HCL 100 MG in SODIUM CHLORIDE 0.9% 180 ML IV PRN (19:30)
[2024-08-12] MEDS: FentaNYL CIT 1000MCG/0.9% NACL 100 ML IV PRN (20:15)
[2024-08-12] MEDS: DOCUSATE SODIUM 100 MG CAPSULE PO SCH (21:00)
[2024-08-12] MEDS: FUROSEMIDE 20 MG/2 ML VIAL IVP SCH (21:17)
[2024-08-13] VITALS (17 sets, daily range): BP systolic 90–112; BP diastolic 56–77; PULSE 69–80; RESP 18–19; TEMP 96.4–98.4; O2SAT 91–100
[2024-08-13 05:33] LABS: BASOPHILS % (AUTO) 0.5 % (0.0-2.0); HEMATOCRIT 35.6 % (41-53); HEMOGLOBIN 11.6 g/dL (13.5-17.5); LYMPHOCYTES # (AUTO) 1.6 K/uL (1.0-4.8); LYMPHOCYTES % (AUTO) 19.5 % (22.0-44.0); MEAN CORPUSCULAR HGB CONC 32.7 G/dL (31.0-37.0); MEAN CORPUSCULAR VOLUME 95 fL (80-100); MONOCYTES # (AUTO) 0.8 K/uL (0.1-1.0); MONOCYTES % (AUTO) 9.9 % (2.0-9.0); NEUTROPHILS # (AUTO) 5.5 K/uL (1.8-7.7); NEUTROPHILS % (AUTO) 69.1 % (40.0-70.0); PLATELET COUNT (AUTO) 238 K/uL (150-450); RED BLOOD CELL COUNT(AUTO) 3.75 MIL/uL (4.50-5.90); RED CELL DISTRIBUTION WIDTH 14.3 % (11.5-14.5)
[2024-08-13 05:41] LABS: CALCIUM, TOTAL 7.7 mg/dL (8.8-10.5); CREATININE 2.14 mg/dL (0.60-1.30); POTASSIUM 4.3 mmol/L (3.5-5.1)
[2024-08-13 06:17] LABS: RBC MORPHOLOGY COMMENT NORMAL RBC MORPH
[2024-08-13] MEDS ORDERED: ALBUTEROL SULFATE 2.5 MG/0.5 ML NEB SOLUTION NEB PRN (07:45)
[2024-08-13] MEDS ORDERED: IPRATROPIUM BROMIDE 0.5 MG/2.5 ML NEB SOLUTION NEB PRN (07:45)
[2024-08-13] MEDS: GuaiFENesin SR 600 MG ER TABLET PO SCH (08:02)
[2024-08-13] MEDS: PANTOPRAZOLE SODIUM 40 MG DR TABLET PO SCH (08:02)
[2024-08-13] MEDS: BENZONATATE 100 MG CAPSULE PO SCH (08:02)
[2024-08-13] MEDS: ALBUTEROL SULFATE 2.5 MG/0.5 ML NEB SOLUTION NEB SCH (08:48)
[2024-08-13] MEDS: IPRATROPIUM BROMIDE 0.5 MG/2.5 ML NEB SOLUTION NEB SCH (08:48)
[2024-08-13] MEDS: SPIRONOLACTONE 25 MG TABLET PO SCH (09:00)
[2024-08-13] MEDS: METOPROLOL SUCCINATE 50 MG ER TABLET PO SCH (09:00)
[2024-08-13] MEDS: LOSARTAN POTASSIUM 25 MG TABLET PO SCH (09:00)
[2024-08-13 09:10] LABS: ALLEN TEST, BLOOD GAS Positive; SITE, BLOOD GAS RT RADIAL; SOURCE, BLOOD GAS ARTERIAL
[2024-08-13 09:11] LABS: ABG PCO2 38 mmHg (32.0-48.0); ABG PH 7.411 (7.350-7.450); TEMPERATURE, FAHRENHEIT, BG 98.3 FAHREN (96.0-98.6)
[2024-08-13 09:12] LABS: ABG CARBOXYHEMOGLOBIN 0.5 % (0.5-1.5); ABG HCO3 23.9 mmol/L (21.0-28.0); ABG METHEMOGLOBIN 0.1 % (0.0-1.5); ABG OXYHEMOGLOBIN 98.5 % (94.0-98.0); ABG TOTAL HEMOGLOBIN 12.9 G/dL (13.5-17.5); PO2, ARTERIAL BG 147.3 mmHg (83.0-108.0)
[2024-08-13 09:13] LABS: ABG OXYGEN CONTENT 18.1 mL/dL (15.0-23.0)
[2024-08-13 09:14] LABS: ABG A-A DIFF O2 166.6 mmHg (10-20.0)
[2024-08-13 09:15] LABS: O2 DEVICE,BLOOD GAS VENTILATOR (ROOM AIR)
[2024-08-13 09:16] LABS: PEEP,BG 5 cm H2O; SPONTANEOUS VT, BG 461 ml; VT, ABG 450 ml
[2024-08-13] MEDS: MethylPREDNISolone SOD SUCC 125 MG/2 ML VIAL IVP SCH (11:29)
[2024-08-14] VITALS (17 sets, daily range): BP systolic 109–145; BP diastolic 65–81; PULSE 67–89; RESP 14–26; TEMP 97.1–99.2; O2SAT 94–100
[2024-08-14 05:21] LABS: BASOPHILS % (AUTO) 0.3 % (0.0-2.0); EOSINOPHILS % (AUTO) 0 % (1.0-6.0); HEMATOCRIT 37.8 % (41-53); HEMOGLOBIN 12.2 g/dL (13.5-17.5); LYMPHOCYTES # (AUTO) 0.3 K/uL (1.0-4.8); LYMPHOCYTES % (AUTO) 4.8 % (22.0-44.0); MEAN CORPUSCULAR HEMOGLOBIN 30.4 pg (26.0-34.0); MEAN CORPUSCULAR HGB CONC 32.3 G/dL (31.0-37.0); MEAN CORPUSCULAR VOLUME 94 fL (80-100); MONOCYTES # (AUTO) 0.2 K/uL (0.1-1.0); MONOCYTES % (AUTO) 2.8 % (2.0-9.0); NEUTROPHILS # (AUTO) 6.7 K/uL (1.8-7.7); PLATELET COUNT (AUTO) 259 K/uL (150-450); RED BLOOD CELL COUNT(AUTO) 4.02 MIL/uL (4.50-5.90); RED CELL DISTRIBUTION WIDTH 14.1 % (11.5-14.5); WHITE BLOOD COUNT (AUTO) 7.3 K/uL (4.5-11.0)
[2024-08-14 05:26] LABS: NEUTROPHILS % (AUTO) 92.1 % (40.0-70.0)
[2024-08-14 05:29] LABS: CALCIUM, TOTAL 7.8 mg/dL (8.8-10.5); CREATININE 2.4 mg/dL (0.60-1.30); POTASSIUM 4.1 mmol/L (3.5-5.1)
[2024-08-14 06:14] LABS: RBC MORPHOLOGY COMMENT NORMAL RBC MORPH
[2024-08-14] MEDS ORDERED: SODIUM CHLORIDE 0.9% 250 ML IV ONE ×2 (09:25→16:47)
[2024-08-14 12:55] LABS: ABG A-A DIFF O2 150.2 mmHg (10-20.0); ABG BASE EXCESS -1.5 mmol/L (-2.0-3.0); ABG HCO3 23.5 mmol/L (21.0-28.0); ABG METHEMOGLOBIN 0.1 % (0.0-1.5); ABG OXYGEN CONTENT 17.5 mL/dL (15.0-23.0); ABG OXYGEN SATURATION 96.6 % (94.0-98.0); ABG OXYHEMOGLOBIN 95.5 % (94.0-98.0); ABG PCO2 39 mmHg (32.0-48.0); ABG PH 7.398 (7.350-7.450); ALLEN TEST, BLOOD GAS Positive; CPAP, BG 0 cm H2O; O2 DEVICE,BLOOD GAS VENTILATOR (ROOM AIR); PO2, ARTERIAL BG 90.1 mmHg (83.0-108.0); PRESSURE SUPPORT, BG 8 cm H2O; SITE, BLOOD GAS LFT RADIAL; SOURCE, BLOOD GAS ARTERIAL; SPONTANEOUS VT, BG 450 ml; TEMPERATURE, FAHRENHEIT, BG 99.3 FAHREN (96.0-98.6); VENT MODE, BG CPAP (ROOM AIR)
[2024-08-14] MEDS: MethylPREDNISolone SOD SUCC 40 MG/ML VIAL IVP SCH (16:42)
[2024-08-14] MEDS: ACETAMINOPHEN 325 MG TABLET PO PRN (18:28)
[2024-08-14] MEDS: FUROSEMIDE 20 MG/2 ML VIAL IVP SCH (21:24)
[2024-08-15] VITALS (12 sets, daily range): BP systolic 105–133; BP diastolic 73–103; PULSE 76–108; RESP 11–23; TEMP 97.7–99.1; O2SAT 96–100
[2024-08-15 05:53] LABS: BASOPHILS % (AUTO) 0.1 % (0.0-2.0); EOSINOPHILS % (AUTO) 0 % (1.0-6.0); HEMATOCRIT 37.1 % (41-53); HEMOGLOBIN 12.1 g/dL (13.5-17.5); LYMPHOCYTES # (AUTO) 0.2 K/uL (1.0-4.8); LYMPHOCYTES % (AUTO) 1.9 % (22.0-44.0); MEAN CORPUSCULAR HEMOGLOBIN 30.8 pg (26.0-34.0); MEAN CORPUSCULAR HGB CONC 32.6 G/dL (31.0-37.0); MEAN CORPUSCULAR VOLUME 94 fL (80-100); MONOCYTES # (AUTO) 0.7 K/uL (0.1-1.0); MONOCYTES % (AUTO) 6.1 % (2.0-9.0); NEUTROPHILS # (AUTO) 10.5 K/uL (1.8-7.7); PLATELET COUNT (AUTO) 262 K/uL (150-450); RED BLOOD CELL COUNT(AUTO) 3.93 MIL/uL (4.50-5.90); RED CELL DISTRIBUTION WIDTH 14.3 % (11.5-14.5); WHITE BLOOD COUNT (AUTO) 11.4 K/uL (4.5-11.0)
[2024-08-15 06:01] LABS: CALCIUM, TOTAL 7.9 mg/dL (8.8-10.5); CREATININE 2.14 mg/dL (0.60-1.30); POTASSIUM 4.2 mmol/L (3.5-5.1)
[2024-08-15 06:02] LABS: NEUTROPHILS % (AUTO) 91.9 % (40.0-70.0)
[2024-08-15 06:19] LABS: RBC MORPHOLOGY COMMENT NORMAL RBC MORPH
[2024-08-15] MEDS ORDERED: PHENYLEPHRINE 200 MG/D5%-WATER 250 ML IV PRN (09:30)
[2024-08-16] VITALS (10 sets, daily range): BP systolic 115–129; BP diastolic 82–97; PULSE 68–90; RESP 17–18; TEMP 97.7–98.4; O2SAT 85–99
[2024-08-16 06:40] LABS: EOSINOPHILS % (AUTO) 0 % (1.0-6.0); HEMATOCRIT 39.4 % (41-53); HEMOGLOBIN 12.7 g/dL (13.5-17.5); LYMPHOCYTES # (AUTO) 0.3 K/uL (1.0-4.8); LYMPHOCYTES % (AUTO) 2.1 % (22.0-44.0); MEAN CORPUSCULAR HEMOGLOBIN 30.7 pg (26.0-34.0); MEAN CORPUSCULAR HGB CONC 32.2 G/dL (31.0-37.0); MEAN CORPUSCULAR VOLUME 95 fL (80-100); MONOCYTES # (AUTO) 0.8 K/uL (0.1-1.0); MONOCYTES % (AUTO) 6.3 % (2.0-9.0); NEUTROPHILS # (AUTO) 11.9 K/uL (1.8-7.7); PLATELET COUNT (AUTO) 267 K/uL (150-450); RED BLOOD CELL COUNT(AUTO) 4.14 MIL/uL (4.50-5.90); RED CELL DISTRIBUTION WIDTH 14.7 % (11.5-14.5)
[2024-08-16 06:53] LABS: CALCIUM, TOTAL 8.1 mg/dL (8.8-10.5); CREATININE 1.48 mg/dL (0.60-1.30); POTASSIUM 4.2 mmol/L (3.5-5.1)
[2024-08-16 06:58] LABS: NEUTROPHILS % (AUTO) 91.6 % (40.0-70.0)
[2024-08-16] MEDS: METOPROLOL SUCCINATE 25 MG ER TABLET PO SCH (08:55)
[2024-08-16] MEDS: FUROSEMIDE 40 MG TABLET PO SCH (13:10)
[2024-08-16] MEDS ORDERED: SODIUM CHLORIDE 0.9% 500 ML IV ONE (15:43)
[2024-08-17] VITALS (14 sets, daily range): BP systolic 105–129; BP diastolic 79–96; PULSE 74–98; RESP 16–18; TEMP 97.7–98.4; O2SAT 94–100
[2024-08-17 06:36] LABS: EOSINOPHILS % (AUTO) 0 % (1.0-6.0); HEMATOCRIT 40.2 % (41-53); LYMPHOCYTES # (AUTO) 0.9 K/uL (1.0-4.8); LYMPHOCYTES % (AUTO) 6.3 % (22.0-44.0); MEAN CORPUSCULAR HEMOGLOBIN 30.6 pg (26.0-34.0); MEAN CORPUSCULAR HGB CONC 32.3 G/dL (31.0-37.0); MEAN CORPUSCULAR VOLUME 95 fL (80-100); MONOCYTES # (AUTO) 1.6 K/uL (0.1-1.0); MONOCYTES % (AUTO) 11.2 % (2.0-9.0); NEUTROPHILS # (AUTO) 11.9 K/uL (1.8-7.7); NEUTROPHILS % (AUTO) 82.5 % (40.0-70.0); PLATELET COUNT (AUTO) 262 K/uL (150-450); RED BLOOD CELL COUNT(AUTO) 4.25 MIL/uL (4.50-5.90); RED CELL DISTRIBUTION WIDTH 14.5 % (11.5-14.5); WHITE BLOOD COUNT (AUTO) 14.5 K/uL (4.5-11.0)
[2024-08-17 06:52] LABS: ALANINE AMINOTRANSFERASE 31 U/L (12-78); ALBUMIN 2.6 g/dL (3.4-5.0); ALKALINE PHOSPHATASE 101 U/L (46-116); ANION GAP 3 mmol/L (8-16); ASPARTATE AMINOTRANSFERASE 17 U/L (15-37); BILIRUBIN,TOTAL 0.9 mg/dL (0.1-1.0); CALCIUM, TOTAL 8.1 mg/dL (8.8-10.5); CARBON DIOXIDE 32 mmol/L (22-29); CHLORIDE 100 mmol/L (98-107); CREATININE 1.44 mg/dL (0.60-1.30); GLOMERULAR FILTR. RATE CALC > 60 mL/min (>60); GLUCOSE,RANDOM 104 mg/dL (70-110); POTASSIUM 3.9 mmol/L (3.5-5.1); SODIUM SERUM 135 mmol/L (136-145); TOTAL PROTEIN, SERUM 6.1 g/dL (6.4-8.2); UREA NITROGEN, BLOOD 46 mg/dL (7-18)
[2024-08-17] MEDS: PredniSONE 20 MG TABLET PO SCH (08:38)
[2024-08-18] VITALS (7 sets, daily range): BP systolic 106–132; BP diastolic 67–98; PULSE 72–89; RESP 17–18; TEMP 98.4–98.6; O2SAT 95–99
[2024-08-18 06:45] LABS: BASOPHILS % (AUTO) 0.7 % (0.0-2.0); EOSINOPHILS % (AUTO) 0.4 % (1.0-6.0); HEMOGLOBIN 13.4 g/dL (13.5-17.5); LYMPHOCYTES # (AUTO) 1.3 K/uL (1.0-4.8); LYMPHOCYTES % (AUTO) 9.3 % (22.0-44.0); MEAN CORPUSCULAR HEMOGLOBIN 30.4 pg (26.0-34.0); MEAN CORPUSCULAR HGB CONC 31.8 G/dL (31.0-37.0); MEAN CORPUSCULAR VOLUME 96 fL (80-100); MONOCYTES # (AUTO) 1.2 K/uL (0.1-1.0); MONOCYTES % (AUTO) 8.7 % (2.0-9.0); NEUTROPHILS # (AUTO) 11.6 K/uL (1.8-7.7); NEUTROPHILS % (AUTO) 80.9 % (40.0-70.0); PLATELET COUNT (AUTO) 243 K/uL (150-450); RED BLOOD CELL COUNT(AUTO) 4.39 MIL/uL (4.50-5.90); RED CELL DISTRIBUTION WIDTH 14.6 % (11.5-14.5); WHITE BLOOD COUNT (AUTO) 14.4 K/uL (4.5-11.0)
[2024-08-18 06:55] LABS: ANION GAP 6 mmol/L (8-16); CALCIUM, TOTAL 8.5 mg/dL (8.8-10.5); CARBON DIOXIDE 32 mmol/L (22-29); CHLORIDE 101 mmol/L (98-107); CREATININE 1.38 mg/dL (0.60-1.30); GLOMERULAR FILTR. RATE CALC > 60 mL/min (>60); GLUCOSE,RANDOM 92 mg/dL (70-110); POTASSIUM 3.8 mmol/L (3.5-5.1); SODIUM SERUM 139 mmol/L (136-145); UREA NITROGEN, BLOOD 46 mg/dL (7-18)
[2024-08-18 07:04] LABS: RBC MORPHOLOGY COMMENT NORMAL RBC MORPH
[2024-08-18] MEDS ORDERED: METO25XL PO (11:32)
[2024-08-18] MEDS ORDERED: LEVO750T68 PO (11:32)
[2024-08-18] MEDS ORDERED: FURO40TA5 PO (11:32)
[2024-08-18] MEDS ORDERED: LEVOFLOXACIN 750 MG/D5% WATER 150 ML IV SCH (12:00)
== END 2024-08-18 13:42 | disposition home or self-care (01) | DRG 133 ==
LOC: EMS 07:50 → EDH 14:45 → ICU 08-13 03:00 → 5N 08-15 17:39
PROVIDERS: ADMIT Internal Medicine; ATTEND Internal Medicine
PROC: 5A1945Z Respiratory Ventilation, 24-96 Consecutive Hours (ICD-10-PCS; principal; 2024-08-12)
PROC: 5A09357 Assistance with Respiratory Ventilation, Less than 24 Consecutive Hours, Continuous Positive Airway Pressure (ICD-10-PCS; 2024-08-12)
PROC: 0BH17EZ Insertion of Endotracheal Airway into Trachea, Via Natural or Artificial Opening (ICD-10-PCS; 2024-08-12)
DX: J96.01 Acute respiratory failure with hypoxia (principal); I50.23 Acute on chronic systolic (congestive) heart failure; N17.9 Acute kidney failure, unspecified; I42.9 Cardiomyopathy, unspecified; J45.901 Unspecified asthma with (acute) exacerbation; K76.0 Fatty (change of) liver, not elsewhere classified; F10.10 Alcohol abuse, uncomplicated; I13.0 Hypertensive heart and chronic kidney disease with heart failure and stage 1 through stage 4 chronic kidney disease, or unspecified chronic kidney disease; F19.10 Other psychoactive substance abuse, uncomplicated; Z87.891 Personal history of nicotine dependence; Z79.899 Other long term (current) drug therapy; N18.30 Chronic kidney disease, stage 3 unspecified
CPT/HCPCS: 31500; 70450; 71045; 71275; 74176; 76770; 80048; 80053; 80307; 81003; 82550; 82805; 83880; 84484; 85025; 85610; 85730; 87070; 87081; 87205; 92526; 92610; 93005; 93306; 94002; 94003; 94640; 94660; 97116; 97163; 97530; 99291; J0456; J0696; J1250; J1644; J1940; J1956; J2060; J2250; J2270; J2704; J2919; J3010; J3490; J7040; J7050; J7060; 36415-L1; 36415-TC; J7613